=== PATIENT | female | born 1970 | race Caucasian/White ===

== ENCOUNTER 2018-05-31 07:58 | Observation (INO) | payer OTHER ==
[2018-05-31] MEDS ORDERED: LACTATED RINGERS 1,000 ML IV ONE (08:13)
[2018-05-31] MEDS ORDERED: SCOPOLAMINE HYDROBROMIDE 1.5MG/72HR PATCH TD ONE (08:13)
[2018-05-31] MEDS ORDERED: ENOXAPARIN SODIUM 40 MG/0.4 ML DISP.SYRIN SQ ONE (08:13)
[2018-05-31] MEDS ORDERED: FAMOTIDINE 20 MG/2 ML VIAL ONE (08:13)
[2018-05-31] MEDS ORDERED: LACTATED RINGERS 1,000 ML IV.SOLN IV ONE ×2 (08:48)
[2018-05-31] MEDS ORDERED: PROMETHAZINE HCL 25 MG/ML VIAL ONE ×2 (08:48→12:22)
[2018-05-31] MEDS ORDERED: ACETAMINOPHEN 1,000 MG/100 ML INJ IV ONE ×2 (08:48→10:46)
[2018-05-31] MEDS ORDERED: SODIUM CHLORIDE IRRIG SOLUTION 3,000 ML IRRIG.SOLN IR ONE (08:48)
[2018-05-31] MEDS ORDERED: BUPIV. HCL 0.5% (5MG/ML)/EPI. (1:200,000) PF 30 ML VIAL IJ ONE (08:48)
[2018-05-31] MEDS ORDERED: MIDAZOLAM HCL 2 MG/2 ML VIAL ONE ×3 (08:48→12:44)
[2018-05-31] MEDS ORDERED: methylPREDNISolone ACETATE 80 MG/ML VIAL IM ONE (08:48)
[2018-05-31] MEDS ORDERED: LIDOCAINE HCL 1% MDV 200MG/20ML VIAL ONE (08:48)
[2018-05-31] MEDS ORDERED: SEVOFLURANE 250 ML LIQUID IH ONE (08:48)
[2018-05-31] MEDS ORDERED: ceFAZolin SODIUM 1 GM VIAL ONE (08:48)
[2018-05-31] MEDS ORDERED: ROCURONIUM BROMIDE 10 MG/ML 5ML VIAL ONE (08:48)
[2018-05-31] MEDS ORDERED: LIDOCAINE HCL 2% PF 100MG/5ML VIAL IJ ONE (08:48)
[2018-05-31] MEDS ORDERED: ONDANSETRON HCL/PF 4 MG/ 2ML VIAL ONE (08:48)
[2018-05-31] MEDS ORDERED: HYDROmorphone HCL/PF 2 MG/ML VIAL ONE ×2 (08:48→12:33)
[2018-05-31] MEDS ORDERED: fentaNYL CITRATE/PF 100 MCG/2 ML INJ. ONE ×2 (08:48→12:16)
[2018-05-31] MEDS ORDERED: FENTANYL CITRATE/PF 250 MCG/5 ML INJ. ONE (08:48)
[2018-05-31] MEDS ORDERED: MEPERIDINE (NF) 50 MG/ML VIAL ONE ×2 (08:48→12:39)
[2018-05-31] MEDS ORDERED: GLYCOPYRROLATE 0.2 MG/1 ML 1 ML ONE (08:48)
[2018-05-31] MEDS ORDERED: SUGAMMADEX SODIUM 200 MG/2 ML VIAL IV ONE (08:48)
[2018-05-31] MEDS ORDERED: PROPOFOL 200 MG/20 ML VIAL IV ONE (08:48)
[2018-05-31] MEDS ORDERED: LEVALBUTEROL HCL 1.25 MG/3 ML AMPUL.NEB NEB ONE (09:22)
[2018-05-31] MEDS ORDERED: MORPHINE SULFATE 10MG/0.5ML ORAL SOLN UD CUP PO PRN (13:59)
[2018-05-31] MEDS ORDERED: PROMETHAZINE HCL 25 MG in 0.9 % SODIUM CHLORIDE 50 ML IV PRN (13:59)
[2018-05-31] MEDS ORDERED: HYDROcodone /APAP 10/325 1 EACH TABLET PO PRN (14:29)
[2018-05-31 14:43] VITALS: BMI 58.6
[2018-05-31] MEDS: ONDANSETRON HCL/PF 4 MG/ 2ML VIAL IVP PRN (14:59)
--- NOTE | 2018-05-31 16:17 | History and Physical Report ---
History of Present Illnes - History of Present Illness Reason for Visit: S/P Gastric Sleeve History of Present Illness: Patient is a 48-year-old white morbidly obese female who has tried multiple diets and exercise programs with no success. Patient and surgeon decided to proceed with gastric sleeve procedure due to multiple medical conditions. She was cleared by Rheumatology, Pulmonology, and Cardiology with an EF 56%. Procedure went well without complications- patient will be admitted and monitored s/p surgical intervention. - Past Medical History Cardiac: CHF, HTN, Hyperlipidemia, Other (EF 56%) Pulmonary: COPD, Sleep Apnea Gastrointestinal: GERD Hepatobiliary: denies: Hep A/B/C Psych: Anxiety, Depression Musculoskeletal: Osteoarthritis Rheumatologic: Rheumatoid arthritis (ankylosing spondylosis/ Psoriatic arthritis) Infectious Disease: denies: HIV Endocrine: Diabetes, obesity Grav: 2 Para: 2 Ab: 0 - Past Surgical History Past Surgical History: Hysterectomy, Tubal Ligation, Other (bilateral rotator cuff) - Past Family History Mother Family History: Cancer, Father Family History: Cancer, - Past Social History Smoke: 1 pack per day, Quit (9 years ago) Occupation: Disabled Alcohol: None Drugs: None Lives: With Family Domestic Violence: Negative - Health Maintenance Health Maintenance: Cholesterol, Tetanus, Influenza Vaccine, Pap Smear, Mammogram Influenza Vaccine: Current for this Influenza Season Pneumonia Vaccine: No Resuscitation Status: Resusciation Status Resuscitation Status Full Code - Unable to Obtain History Unable to Obtain: No Review of Systems - Review of Systems Constitutional: Weakness Eyes: negative: pain ENT: negative: Ear Pain, Nose Pain, Throat Pain Respiratory: SOB with Excertion Cardiovascular: Edema (generalized lower extremities). negative: Chest Pain Gastrointestinal: Nausea, Abdominal Pain (s/p gastric sleeve). negative: Vomiting Genitourinary: negative: Dysuria Musculoskeletal: Shoulder Pain, Arm Pain, Back Pain Skin: negative: Rash Neurological: Weakness - Medications/Allergies Allergies/Adverse Reactions: Allergies Allergy/AdvReac Type Severity Reaction Status Date / Time latex Allergy Verified 05/31/18 13:58 naproxen [From Aleve] Allergy Verified 05/31/18 13:58 peach Allergy Verified 05/31/18 13:58 Home Medications: Home Medications Albuterol Sulfate [Proair Hfa] 8.5 gm IH Q4 PRN 05/31/18 Buspirone HCl [Buspar] 15 mg PO DAILY 05/31/18 Celecoxib 200 mg PO BID 05/31/18 DULoxetine HCL [Cymbalta] 60 mg PO BID 05/31/18 Dexlansoprazole [Dexilant] 60 mg PO DAILY 05/31/18 Folic Acid 1 mg PO DAILY 05/31/18 Furosemide [Lasix] 20 mg PO DAILY 05/31/18 Gabapentin [Neurontin] 300 mg PO TID 05/31/18 Ipratropium/Albuterol Sulfate [Combivent Respimat] 1 puff IH DAILY 05/31/18 Liraglutide [Victoza 2-Eron] 1.2 mg SQ DAILY 05/31/18 Methadone HCl [Dolophine HCl] 10 mg PO HS 05/31/18 Methotrexate [Xatmep] 7.5 mg PO WEEK 05/31/18 Nitroglycerin [Nitrostat] 0.4 mg SL Q5MIN PRN 05/31/18 Ondansetron HCl Rapdis [Zofran Odt] 8 mg PO Q6 PRN 05/31/18 Oxycodone HCl/Acetaminophen [Percocet 10/325] 1 each PO TID PRN 05/31/18 Potassium Chloride [Klor-Con M20] 20 meq PO DAILY 05/31/18 Promethazine HCl [Phenergan] 25 mg PO Q6 PRN 05/31/18 Ranitidine HCl 300 mg PO HS 05/31/18 Rosuvastatin Calcium [Crestor] 5 mg PO DAILY 05/31/18 Sulfasalazine [Azulfidine] 500 mg PO BID 05/31/18 Current Inpatient Medications: Current Inpatient Medications Cefazolin Sodium/Dextrose (Cefazolin 1 G/50 Ml-Dextrose) 1 gm IV Q8H PHILLIP Stop: 06/01/18 06:00 Enoxaparin Sodium (Lovenox) 40 mg SQ QD PHILLIP Stop: 06/15/18 13:59 Famotidine (Pepcid) 20 mg IVP BID PHILLIP Stop: 06/04/18 20:59 Sodium Chloride (Normal Saline) 1,000 mls @ 150 mls/hr IV Q8H PHILLIP Promethazine HCl 25 mg/ Sodium (Chloride) 51 mls @ 200 mls/hr IV Q6 PRN PRN Reason: Nausea / Vomiting Stop: 06/04/18 13:58 Ketorolac Tromethamine (Toradol) 30 mg IVP Q6 PRN PRN Reason: For Mild Pain Stop: 06/04/18 13:58 Morphine Sulfate (Morphine Sulfate) 4 mg PO Q4 PRN PRN Reason: Severe Pain Stop: 06/04/18 13:58 Ondansetron HCl (Zofran 4 Mg/2 Ml) 4 mg IVP Q6H PRN PRN Reason: Nausea / Vomiting Stop: 06/04/18 13:58 Last Admin: 05/31/18 14:59 Dose: 4 mg Exam - Exam Vital Signs: Vital Signs (72 hours) 05/31/18 13:32 Temperature 97 F L Pulse Rate [ 78 Left Pulse ox] Pulse Rate [ 64 Left] Respiratory 18 Rate Blood Pressure 135/78 [Left Arm] O2 Sat by Pulse 94 Oximetry General: Alert, Oriented to Person, Oriented to Place, Oriented to Time, Cooperative, Mild distress (Has walked x 2- sitting up to the side of the bed), Morbidly Obese HEENT: Atraumatic, PERRLA, Mouth Mucous membr. moist/[place], Nose Mucous membr. moist/[place] Neck: Normal Range of Motion Lungs: Clear to auscultation, Normal air movement, Speaks full Sentences Cardiovascular: Regular rate, Normal S1, Normal S2 Peripheral Edema: generalize- no pitting Abdomen: Soft, Decreased Bowel Sounds Integumentary: [place], Warm, Dry, Other (incision sites- drsg dry/intact) Extremities: Normal pulses, No tenderness/swelling (generalized swelling) Neurological: Normal gait, Normal speech, Strength Equal Bilat, Sensation intact Psych/Mental Status: Mental status NL, Mood NL, Appropriate Affect Assessment/Plan - Assessment/Plan (1) S/P gastric surgery Status: Acute Current Visit: Yes Assessment: Incisions are without redness/erythema, legs are without tenderness/pain, LCTA Plan: Will monitor incision sites, patient will be placed on Lovenox daily, frequent ambulation and SCDs while in bed, patient will use incentive spirometer to prevent resp. infections, will start PPI, and will give IVFs until patient can tolerate PO (2) Morbid obesity due to excess calories Status: Acute Current Visit: Yes Assessment: S/P Gastric Sleeve (3) COPD (chronic obstructive pulmonary disease) Status: Acute Current Visit: Yes Qualifiers: COPD type: unspecified COPD Qualified Code(s): J44.9 - Chronic obstructive pulmonary disease, unspecified Assessment: LCTA- will continue with home inhalers as needed Plan: Will continue with home inhalers and HFN ordered (4) Hypertension Status: Acute Current Visit: Yes Qualifiers: Hypertension type: essential hypertension Qualified Code(s): I10 - Essential (primary) hypertension Assessment: Generalized swelling to lower legs- LCTAp- BP 151/61 Plan: Will continue with patients lasix and potassium (5) Rheumatoid arthritis Status: Acute Current Visit: Yes Qualifiers: Rheumatoid arthritis location: unspecified site Rheumatoid factor presence: unspecified presence Qualified Code(s): M06.9 - Rheumatoid arthritis, unspecified Assessment: patient was to hold meds- will continue with plan Plan: Will hold RA meds (6) Non-insulin dependent type 2 diabetes mellitus Status: Acute Current Visit: Yes Assessment: Blood sugar 177 No hyperglycemic episodes Plan: will hold DM meds and monitor closely (7) Fibromyalgia Status: Acute Current Visit: Yes Assessment: Stable on home meds Plan: Pain meds ordered (8) Hyperlipidemia Status: Acute Current Visit: Yes Qualifiers: Hyperlipidemia type: mixed hyperlipidemia Qualified Code(s): E78.2 - Mixed hyperlipidemia Assessment: Stable with home meds Plan: Will hold med during admission (9) CHF (congestive heart failure) Status: Acute Current Visit: Yes Qualifiers: Heart failure type: unspecified Heart failure chronicity: chronic Qualified Code(s): I50.9 - Heart failure, unspecified Assessment: LCTA- generalize/non pitting edema to lower extremities Plan: Will continue with lasix and potassium (10) Ankylosing spondylitis Status: Acute Current Visit: Yes Qualifiers: Ankylosing spondylitis location: multiple sites in spine Qualified Code(s): M45.0 - Ankylosing spondylitis of multiple sites in spine Assessment: stable on home meds Plan: Will monitor VTE Assessment - RISK FACTOR SCORE VTE RISK FACTOR SCORES: AGE 40-60 YEARS, OBESITY, CONGESTIVE HEART FAILURE OR MYOCARDIAL INFARCTION, MAJOR SURGERY/ANESTHESIA TIME > 1 HOUR (Lovenox, frequent ambulation, SCDs while in bed)
[2018-05-31] MEDS: 0.9 % SODIUM CHLORIDE 1,000 ML IV SCH ×2 (17:27→22:05)
[2018-05-31] MEDS ORDERED: ALBUTEROL 90MCG/PUFF INHALER IH PRN (17:40)
[2018-05-31] MEDS ORDERED: GABAPENTIN 100 MG CAPSULE ONE (17:59)
[2018-05-31] MEDS: GABAPENTIN 300 MG CAPSULE PO SCH (18:05)
[2018-05-31] MEDS: KETOROLAC TROMETHAMINE 30 MG/1ML VIAL IVP PRN (18:09)
[2018-05-31] MEDS: CEFAZOLIN SODIUM/DEXTROSE,ISO 1 GM/50 ML PIGGYBACK IV SCH (20:25)
[2018-05-31] MEDS: FAMOTIDINE 20 MG/2 ML VIAL IVP SCH (20:32)
[2018-05-31] MEDS: oxyCODONE/ACETAMINOPHEN 5/325 TABLET PO PRN (20:37)
[2018-06-01] MEDS: HYDROcodone /APAP 10/325 1 EACH TABLET PO PRN ×4 (00:27→15:39)
[2018-06-01] MEDS: 0.9 % SODIUM CHLORIDE 1,000 ML IV SCH (04:48)
[2018-06-01] MEDS: KETOROLAC TROMETHAMINE 30 MG/1ML VIAL IVP PRN ×2 (04:50→21:10)
[2018-06-01] MEDS: CEFAZOLIN SODIUM/DEXTROSE,ISO 1 GM/50 ML PIGGYBACK IV SCH (05:25)
--- NOTE | 2018-06-01 08:02 | Inpatient Progress Note ---
Subjective - Required Recertification Statement I anticipate X number of days because-include discharge plan: 1 - Review of Systems Events since last encounter: Per nursing patient has ambulated x 4 through the night- she has required a couple of doses of pain and nausea medications. She has been using incentive spirometer- wearing SCDs while in bed. She is up walking this morning- she states that she feels much better this morning. General: Fatigue HEENT: Denies: Eye Pain, Ear Pain, Sore Throat Pulmonary: Denies: Dyspnea Cardiovascular: Edema (non-pitting). Denies: Chest Pain Gastrointestinal: Nausea, Abdominal Pain (s/p gastric sleeve). Denies: Vomiting Genitourinary: Denies: Dysuria Musculoskeletal: Back Pain (chronic) Neurological: Weakness Objective - Exam Vitals and I&O: Vital Signs Temp 96.8 F L 06/01/18 06:00 Pulse 66 06/01/18 06:00 Resp 20 06/01/18 06:00 BP 116/57 06/01/18 06:00 Pulse Ox 97 06/01/18 06:00 Intake & Output 05/31/18 05/31/18 06/01/18 11:59 23:59 11:59 Intake Total 1120 1110 Output Total 300 400 Balance 820 710 Weight 175.087 kg Intake: IV 870 1050 Right Antecubital 870 1050 Oral 250 60 Output: Urine 300 400 Other: Voiding Method Toilet Toilet # Voids 0 1 General: Alert, Oriented to Person, Oriented to Place, Oriented to Time, Cooperative, Mild distress HEENT: Atraumatic, PERRLA, Mouth Mucous membr. moist/[place], Nose Mucous membr. moist/[place] Neck: Supple, +2 carotid pulse wo bruit Lungs: Clear to auscultation, Normal air movement, Speaks full Sentences Cardiovascular: Regular rate, Normal S1, Normal S2 Abdomen: Soft, Decreased Bowel Sounds (passing gas & belching). No: Distended Extremities: Normal pulses, No tenderness/swelling Skin: Normal, [place], Warm, Dry Neurological: Normal gait, Normal speech, Strength Equal Bilat, Sensation intact Psych/Mental Status: Mental status NL, Mood NL, Appropriate Affect Assessment/Plan - Assessment/Plan (1) S/P gastric surgery Status: Acute Current Visit: Yes Assessment: incision site (x1 has some minimal drainage other sites x4 intact/dry) LCTA, +Bowel sounds, no pain/tenderness in legs Plan: Will monitor incision sites, patient will be placed on Lovenox daily, frequent ambulation and SCDs while in bed, patient will use incentive spirometer to prevent resp. infections, will start PPI, and will give IVFs until patient can tolerate PO (2) Morbid obesity due to excess calories Status: Acute Current Visit: Yes Assessment: s/p gastric sleeve (3) COPD (chronic obstructive pulmonary disease) Status: Acute Current Visit: Yes Qualifiers: COPD type: unspecified COPD Qualified Code(s): J44.9 - Chronic obstructive pulmonary disease, unspecified Assessment: stable Plan: will continue with home inhalers (4) Hypertension Status: Acute Current Visit: Yes Qualifiers: Hypertension type: essential hypertension Qualified Code(s): I10 - Essential (primary) hypertension Assessment: Stable Plan: Will continue to monitor- BP 116/57 (5) Rheumatoid arthritis Status: Acute Current Visit: Yes Qualifiers: Rheumatoid arthritis location: unspecified site Rheumatoid factor presence: unspecified presence Qualified Code(s): M06.9 - Rheumatoid arthritis, unspecified Assessment: Stable Plan: Will continue on home meds on discharge (6) Non-insulin dependent type 2 diabetes mellitus Status: Acute Current Visit: Yes Assessment: Blood sugars are stable Plan: Will continue to monitor blood sugars (7) Fibromyalgia Status: Acute Current Visit: Yes Assessment: stable Plan: Patient receiving pain meds (8) Hyperlipidemia Status: Acute Current Visit: Yes Qualifiers: Hyperlipidemia type: mixed hyperlipidemia Qualified Code(s): E78.2 - Mixed hyperlipidemia Assessment: sTable Plan: continue meds on discharge (9) CHF (congestive heart failure) Status: Acute Current Visit: Yes Qualifiers: Heart failure type: unspecified Heart failure chronicity: chronic Qualified Code(s): I50.9 - Heart failure, unspecified Assessment: LCTA, no pitting edema to lower extremities Plan: will continue lasix (10) Ankylosing spondylitis Status: Acute Current Visit: Yes Qualifiers: Ankylosing spondylitis location: multiple sites in spine Qualified Code(s): M45.0 - Ankylosing spondylitis of multiple sites in spine Assessment: stable Plan: will continue to monitor
[2018-06-01] MEDS: FUROSEMIDE 20 MG TABLET PO SCH (08:24)
[2018-06-01] MEDS: POTASSIUM CHLORIDE 20 MEQ TABLET.ER PO SCH (08:24)
[2018-06-01] MEDS: GABAPENTIN 300 MG CAPSULE PO SCH ×3 (08:24→17:05)
[2018-06-01] MEDS: FAMOTIDINE 20 MG/2 ML VIAL IVP SCH ×2 (08:26→20:48)
[2018-06-01] MEDS ORDERED: ALBUTEROL SULFATE IH SCH (09:00)
[2018-06-01] MEDS ORDERED: IPRATROPIUM IH SCH (09:00)
[2018-06-01] MEDS: IPRATROPIUM/ALBUTEROL SULFATE 3 ML AMPUL.NEB NEB SCH (11:04)
[2018-06-01] MEDS ORDERED: ENOXAPARIN SODIUM 40 MG/0.4 ML DISP.SYRIN SQ SCH (14:00)
[2018-06-02] MEDS: KETOROLAC TROMETHAMINE 30 MG/1ML VIAL IVP PRN ×2 (04:56→11:22)
[2018-06-02] MEDS: HYDROcodone /APAP 10/325 1 EACH TABLET PO PRN (04:57)
--- NOTE | 2018-06-02 07:53 | Discharge Summary ---
Discharge Summary - Discharge Sumary History of Present Illness: Patient is a 48-year-old white morbidly obese female who has tried multiple diets and exercise programs with no success. Patient and surgeon decided to proceed with gastric sleeve procedure due to multiple medical conditions. She was cleared by Rheumatology, Pulmonology, and Cardiology with an EF 56%. Procedure went well without complications- patient will be admitted and monitored s/p surgical intervention. Condition at Discharge: Stable Home Medications: Ambulatory Orders Medication Instructions Recorded Albuterol Sulfate [Proair Hfa] 8.5 gm IH Q4 PRN 05/31/18 Buspirone HCl [Buspar] 15 mg PO DAILY 05/31/18 Celecoxib 200 mg PO BID 05/31/18 DULoxetine HCL [Cymbalta] 60 mg PO BID 05/31/18 Dexlansoprazole [Dexilant] 60 mg PO DAILY 05/31/18 Folic Acid 1 mg PO DAILY 05/31/18 Furosemide [Lasix] 20 mg PO DAILY 05/31/18 Gabapentin [Neurontin] 300 mg PO TID 05/31/18 Ipratropium/Albuterol Sulfate 1 puff IH DAILY 05/31/18 [Combivent Respimat] Liraglutide [Victoza 2-Eron] 1.2 mg SQ DAILY 05/31/18 Methadone HCl [Dolophine HCl] 10 mg PO HS 05/31/18 Methotrexate [Xatmep] 7.5 mg PO WEEK 05/31/18 Nitroglycerin [Nitrostat] 0.4 mg SL Q5MIN PRN 05/31/18 Ondansetron HCl Rapdis [Zofran Odt] 8 mg PO Q6 PRN 05/31/18 Oxycodone HCl/Acetaminophen 1 each PO TID PRN 05/31/18 [Percocet 10/325] Potassium Chloride [Klor-Con M20] 20 meq PO DAILY 05/31/18 Promethazine HCl [Phenergan] 25 mg PO Q6 PRN 05/31/18 Ranitidine HCl 300 mg PO HS 05/31/18 Rosuvastatin Calcium [Crestor] 5 mg PO DAILY 05/31/18 Sulfasalazine [Azulfidine] 500 mg PO BID 05/31/18 Consultations this Visit: None Procedures this Visit: Other (S/P Gastric Sleeve) Allergies/Adverse Reactions: Allergies Allergy/AdvReac Type Severity Reaction Status Date / Time latex Allergy Verified 05/31/18 13:58 naproxen [From Aleve] Allergy Verified 05/31/18 13:58 peach Allergy Verified 05/31/18 13:58 Patient Problems: Current Active Problems Problem Status Onset Ankylosing spondylitis Acute CHF (congestive heart failure) Acute COPD (chronic obstructive pulmonary disease) Acute Fibromyalgia Acute Hyperlipidemia Acute Hypertension Acute Morbid obesity due to excess calories Acute Non-insulin dependent type 2 diabetes mellitus Acute Rheumatoid arthritis Acute S/P gastric surgery Acute Discharge Summary: Patient is a 48-year-old white female that underwent the gastric sleeve procedure and has done very well. She has been very cooperative with her care by ambulating frequently, using her incentive spirometer, and wearing her SCDs while in bed. She has been compliant with her diet during hospitalization. She is having minimal discomfort at this time and minimal nausea- she has had a bowel movement and is passing gas and belching. She is aware of discharge instructions and what she can and cannot do post surgical- she is aware of the strict diet she must follow to decrease discomfort and have success after procedure. She has family support and daughter will be taking her home- medications written by surgeon were filled by family prior to discharge and patient feels that she is ready to go home. She appears very positive and excited about the future. Hospital Course: We continued with patients lasix- blood pressures have been stable. We held patients diabetic meds and blood sugars have been less than 105. Patient was cooperative with plan of care and treatment - Final Diagnosis (1) S/P gastric surgery Problems: Incisions are without redness/erythema, legs are without tenderness/pain, LCTA, patient will use incentive spirometer to prevent resp. infections while at home, and frequent ambulation Right or Left: Right (2) Morbid obesity due to excess calories Problems: S/P Gastric Sleeve Right or Left: Right (3) COPD (chronic obstructive pulmonary disease) Problems: Stable on home meds Right or Left: Right (4) Hypertension Problems: Blood pressures are stable- continue to take lasix Right or Left: Right (5) Rheumatoid arthritis Problems: Continue home meds Right or Left: Right (6) Non-insulin dependent type 2 diabetes mellitus Problems: Blood sugars stable- hold diabetic meds until follow up Right or Left: Right (7) Fibromyalgia Problems: Stable on home meds Right or Left: Right (8) Hyperlipidemia Problems: Stable on home meds Right or Left: Right (9) CHF (congestive heart failure) Problems: Continue with lasix Right or Left: Right (10) Ankylosing spondylitis Problems: stable on home meds Right or Left: Right
[2018-06-02] MEDS: FAMOTIDINE 20 MG/2 ML VIAL IVP SCH (09:06)
[2018-06-02] MEDS: POTASSIUM CHLORIDE 20 MEQ TABLET.ER PO SCH (09:21)
[2018-06-02] MEDS: GABAPENTIN 300 MG CAPSULE PO SCH (09:21)
[2018-06-02] MEDS: FUROSEMIDE 20 MG TABLET PO SCH (09:21)
[2018-06-02] MEDS: oxyCODONE/ACETAMINOPHEN 5/325 TABLET PO PRN (09:23)
[2018-06-02 10:00] VITALS: BP 125/62
[2018-06-02] MEDS: ONDANSETRON HCL/PF 4 MG/ 2ML VIAL IVP PRN (11:20)
[2018-06-02] MEDS: IPRATROPIUM/ALBUTEROL SULFATE 3 ML AMPUL.NEB NEB SCH (11:28)
== END 2018-06-02 12:30 | disposition home or self-care (01) ==
LOC: OPSURG 07:58 → SOUTH 13:24 → INTOOBSV 13:24 → SOUTH 06-01 12:16
PROVIDERS: ADMIT Nurse Practitioner Family; ATTEND Nurse Practitioner Family
DX: E66.01 Morbid (severe) obesity due to excess calories (principal); Z68.44 Body mass index [BMI] 60.0-69.9, adult; E11.9 Type 2 diabetes mellitus without complications; I10 Essential (primary) hypertension; E78.5 Hyperlipidemia, unspecified; G47.33 Obstructive sleep apnea (adult) (pediatric); K44.9 Diaphragmatic hernia without obstruction or gangrene; J44.9 Chronic obstructive pulmonary disease, unspecified; M79.9 Soft tissue disorder, unspecified; E28.2 Polycystic ovarian syndrome
CPT/HCPCS: 43235; 43775; 88305; 97116; 97161; 97165; 97535; A9270; G0378; J0690; J1170; J1650; J1885; J2001; J2175; J2250; J2405; J2550; J2704; J3010; J3490; J7030; J7120; J7614; S0028; 99217; 99218; 99225; J1040